=== PATIENT | male | born 1990 | race Caucasian/White ===

== ENCOUNTER 2020-09-13 12:20 | Emergency (ER) | payer OTHER, SELFPAY ==
--- NOTE | 2020-09-13 12:36 | DI.RAD.S_ITS ---
PROCEDURE: XR ELBOW RT MIN 3V INDICATIONS: fell on affected elbow last night, pain in prox FA and elbow TECHNIQUE: 3 views of the elbow were acquired. COMPARISON: [facility], , XR FOREARM RT 2V, 09/13/2020, 12:42. FINDINGS: Bones: No fractures or dislocations. No suspicious bony lesions. Soft tissues: No elbow joint effusion. No suspicious soft tissue calcifications. IMPRESSION: No displaced fractures are seen by plain film. Dictated by: Yogesh Augustin M.D. on 09/13/2020 at 12:01 Approved by: Yogesh Augustin M.D. on 09/13/2020 at 12:01
--- NOTE | 2020-09-13 12:36 | DI.RAD.S_ITS ---
PROCEDURE: XR FOREARM RT 2V INDICATIONS: fell on affected elbow last night, pain in prox FA and elbow TECHNIQUE: 2 views of the forearm were acquired. COMPARISON: [facility], , XR ELBOW RT MIN 3V, 09/13/2020, 12:42. FINDINGS: Bones: No fractures or dislocations. No suspicious bony lesions. Soft tissues: No suspicious soft tissue calcifications or masses. IMPRESSION: No displaced fractures can be seen. Dictated by: Yogesh Augustin M.D. on 09/13/2020 at 12:01 Approved by: Yogesh Augustin M.D. on 09/13/2020 at 12:02
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
[2020-09-13 12:41] VITALS: BP 148/80; PULSE 92; RESP 16; TEMP 36.8; O2SAT 95; BMI 25.7
[2020-09-13] MEDS: IBUPROFEN 400 MG TABLET 800 MG PO (12:43)
[2020-09-13] MEDS: TET,DIPH,PERTUSS(ACELL),VAC/PF 0.5 ML SYRINGE IM (12:44)
== END 2020-09-13 14:03 | disposition home or self-care (01) ==
PROVIDERS: Emergency Provider Nurse Practitioner Family
DX: S50.01XA Contusion of right elbow, initial encounter (principal); V18.0XXA Pedal cycle driver injured in noncollision transport accident in nontraffic accident, initial encounter; Z23 Encounter for immunization
CPT/HCPCS: 73080; 73090; 90471; 99283; 90715

== ENCOUNTER 2021-11-02 21:25 | Emergency (ER) | payer OTHER, MEDICAID, SELFPAY ==
[2021-11-02 21:36] VITALS: BP 140/87; PULSE 97; RESP 18; TEMP 36.8; O2SAT 100; BMI 26.6
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
--- NOTE | 2021-11-02 21:59 | DI.RAD.S_ITS ---
PROCEDURE: XR SACRUM COCCYX MIN 2V INDICATIONS: Fall, sacrum injury TECHNIQUE: 3 views of the sacrum and coccyx acquired. COMPARISON: None. FINDINGS: Bones: No acute displaced fracture identified. There is sclerosis along the endplates at S4 -S5 which may reflect sequelae of degeneration or prior trauma. No suspicious bony lesions. Soft tissues: Visualized bowel gas pattern is normal. No suspicious soft tissue densities. IMPRESSION: 1. No displaced fracture identified. If clinical concern persists, recommend further evaluation with CT. Dictated by: James Lepe M.D. on 11/02/2021 at 22:51 Approved by: James Lepe M.D. on 11/02/2021 at 22:51
[2021-11-02] MEDS: HYDROMORPHONE 1 MG INJ IM (22:03)
[2021-11-02] MEDS: IBUPROFEN 400 MG TABLET PO (23:12)
[2021-11-02 23:14] VITALS: BP 125/72; PULSE 78; RESP 18; O2SAT 100
== END 2021-11-02 23:14 | disposition home or self-care (01) ==
PROVIDERS: Emergency Provider Emergency Medicine; PCP Family Medicine
DX: S30.0XXA Contusion of lower back and pelvis, initial encounter (principal); V19.9XXA Pedal cyclist (driver) (passenger) injured in unspecified traffic accident, initial encounter
CPT/HCPCS: 72220; 96372; 99283; 99284; J1170

== ENCOUNTER 2023-10-16 00:13 | Emergency (ER) | payer OTHER, MEDICAID, SELFPAY ==
[2023-10-16 00:20] VITALS: BP 149/81; PULSE 124; RESP 18; TEMP 36.5; O2SAT 98; BMI 25.7
[2023-10-16 00:21] VITALS: PULSE 114; RESP 27; O2SAT 97
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
[2023-10-16] MEDS: NALOXONE 1 MG/ML SYRINGE 2 MG NASAL (00:27)
[2023-10-16 00:30] VITALS: PULSE 119; RESP 24; O2SAT 100
--- NOTE | 2023-10-16 00:55 | PC.NURSE ---
Pt disconnected self from monitor and got angry stating that he is out of here.
== END 2023-10-16 00:52 | disposition home or self-care (01) ==
PROVIDERS: Emergency Provider Emergency Medicine; PCP Family Medicine
DX: T40.411A Poisoning by fentanyl or fentanyl analogs, accidental (unintentional), initial encounter (principal)
CPT/HCPCS: 99282; J2310

== ENCOUNTER 2024-11-18 13:37 | Emergency (ER) | payer OTHER, MEDICAID, SELFPAY ==
[2024-11-18 13:49] VITALS: BP 127/73; PULSE 80; RESP 18; TEMP 36.4; O2SAT 100; BMI 27.4
--- NOTE | 2024-11-18 13:52 | DI.US.S_ITS ---
PROCEDURE: US SCROTUM INDICATIONS: testicular pain TECHNIQUE: Real-time scanning was performed of the scrotum and testicles, with image documentation. Color and pulse Doppler interrogation was performed of both testicles. COMPARISON: None. FINDINGS: Right: Testicle is normal in size at 4.3 x 3.0 x 2.4 cm, and homogenous in echotexture. Epididymis is normal in overall size and morphology. No hydrocele or varicoceles. Overlying scrotal skin is normal in thickness. Left: Testicle is normal in size at 4.3 x 3.1 x 2.2 cm, and homogeneous in echotexture. Epididymis is normal in overall size and morphology. No hydrocele or varicoceles. Overlying scrotal skin is normal in thickness. Doppler: Color and pulse Doppler demonstrate normal and symmetric arterial flow in both testicles. Increased vascularity in right epididymal tail is seen. Increased vascularity is also noted involving entire left epididymis. IMPRESSION: 1. Finding is concerning for left-sided epididymitis and mild right-sided epididymitis involving right epididymal tail. 2. No evidence of testicular torsion. No hydrocele or varicoceles. No solid appearing testicular lesion. Dictated by: Zaid Pryor M.D. on 11/18/2024 at 14:30 Approved by: Zaid Pryor M.D. on 11/18/2024 at 14:31
[2024-11-18 15:36] LABS: Bacteria Urine Occasional (0-1); RBC Urine 0-1/HPF (0-5/HPF); Sperm Urine PRESENT; Squamous Epithelial Cell Urine 0-1 /HPF (0-5/HPF); Urine Volume 10mL (spun); WBC Urine 0-1/HPF (0-5/HPF)
[2024-11-18 15:37] LABS: Culture Indicated Urine Cult Not Indicated; Mucus Urine 3+ (Negative)
[2024-11-18 16:51] LABS: Urine N gonorrhoeae NOT DETECTED
[2024-11-18 16:53] LABS: Urine Chlamydia NOT DETECTED
--- NOTE | 2024-11-18 17:49 | ED.MALEGU ---
HPI - Male Genitourinary <Wu Wilson PA-C - Last Filed: 11/18/24 17:54> General Chief complaint: Urogenital-Male Stated complaint: woke up this am with testicular pain Time Seen by Provider: 11/18/24 14:41 Source: patient Mode of arrival: Ambulatory History of Present Illness HPI Narrative: 33-year-old male presents to the ED with 1 day of bilateral scrotal pain, left greater than right. No fever, chills, nausea, vomiting. No dysuria. No new sexual partners. Related Data Home Medications Medication Instructions Recorded Confirmed methadone 10 mg/5 mL oral solution 30 mg PO DAILY 06/23/23 07/17/23 naloxone 4 mg/actuation nasal spray intranasal 06/23/23 07/17/23 Previous Rx's Medication Instructions Recorded atomoxetine 40 mg capsule 40 mg PO DAILY #60 caps 07/17/23 (Strattera) lamotrigine 25 mg tablet (Lamictal) 50 mg (2 x 25 mg) PO BID #120 tabs 07/17/23 doxycycline hyclate 100 mg capsule 100 mg PO BID 10 days #20 caps 11/18/24 Allergies Allergy/AdvReac Type Severity Reaction Status Date / Time No Known Drug Allergies Allergy Verified 11/18/24 13:49 Review of Systems <Wu Wilson PA-C - Last Filed: 11/18/24 17:54> Constitutional Constitutional: Denies chills, Denies fatigue, Denies fever(s), Denies frequent falls, Denies lethargy and Denies weakness Eyes Eyes: Denies change in vision, Denies eye discharge, Denies irritation and Denies loss of vision ENT Ears, Nose, Mouth, and Throat: Denies change in voice, Denies dizziness, Denies neck pain, Denies sore throat and Denies throat swelling Cardiovascular Cardiovascular: Denies chest pain, Denies irregular heart rhythm, Denies lightheadedness, Denies palpitations, Denies dyspnea, Denies dyspnea on exertion and Denies orthopnea Respiratory Respiratory: Denies cough, Denies dyspnea, Denies dyspnea on exertion and Denies wheezing Gastrointestinal Gastrointestinal: Denies abdominal pain, Denies change in bowel habits, Denies diarrhea, Denies nausea and Denies vomiting Genitourinary Comments: bilateral scrotal pain, L>R Musculoskeletal Musculoskeletal: Denies neck pain and Denies numbness Integumentary/Breasts Skin/Breast: Denies pruritus, Denies erythema, Denies rash and Denies wounds Neurologic Neurologic: Denies behavioral changes, Denies confusion, Denies dizziness, Denies frequent falls, Denies loss of vision, Denies numbness and Denies weakness Psychiatric Psychiatric: Denies anxiety, Denies behavioral changes, Denies confusion, Denies depression, Denies homicidal ideation and Denies suicidal ideation Endocrine Endocrine: Denies fatigue, Denies flushing and Denies palpitations Hematologic/Lymphatic Hematologic/Lymphatic: Denies easy bruising Allergic/Immunologic Allergic/Immunologic: Denies urticaria, Denies throat swelling and Denies wheezing Patient History <Wu Wilson PA-C - Last Filed: 11/18/24 17:54> Medical History ADHD Heroin use disorder, mild, in early remission Methamphetamine use disorder, mild, in early remission Bipolar 1 disorder Substance abuse (~2011) Depression History of bipolar disorder Anxiety Depression History of bipolar disorder Foot pain Chicken pox (~1995) Attention deficit disorder Tobacco abuse History of substance abuse No significant past medical history Surgical History No pertinent past surgical history Family History Grandmother Breast cancer Grandfather Cancer Social History Smoking Status: Current every day smoker Tobacco: How many years used: 15 Smokeless tobacco user: other (Juul ) quit status: considering quitting alcohol intake: current (2 beers per week ) substance use type: former substance user, heroin (Quit 09/02/20) and methamphetamine (Quit 09/02/20) Smoking Status: Current every day smoker tobacco type: vaping alcohol intake frequency: 0-2 drinks per day Exam <Wu Wilson PA-C - Last Filed: 11/18/24 17:54> Narrative Exam Narrative: Const General:?cooperative, healthy appearing and comfortable [facility] Head:?normal to inspection Ears:?hearing grossly normal bilaterally Nose:?external nose normal Face and sinus:?normal facial exam and sinuses nontender Mouth:?oral mucosae normal Throat:?posterior oropharynx normal Eyes General:?appearance normal, both eyes and all related structures Neck Neck:?normal visual inspection and no lymphadenopathy noted Resp Effort & Inspection:?normal respiratory effort Auscultation:?clear to auscultation bilaterally Cardio Rate:?regular rate Rhythm:?regular rhythm External exam normal Neuro General:?patient alert, patient awake and patient oriented x3 Initial Vital Signs Initial Vital Signs: Vital Signs Temperature 97.5 F L 11/18/24 13:49 Pulse Rate 80 11/18/24 13:49 Respiratory Rate 18 11/18/24 13:49 Blood Pressure 127/73 11/18/24 13:49 Pulse Oximetry 100 11/18/24 13:49 Oxygen Delivery Method Room Air 11/18/24 13:49 <Mary Wagner MD - Last Filed: 11/18/24 22:00> Initial Vital Signs Initial Vital Signs: Vital Signs Temperature 97.5 F L 11/18/24 13:49 Pulse Rate 80 11/18/24 13:49 Respiratory Rate 18 11/18/24 13:49 Blood Pressure 127/73 11/18/24 13:49 Pulse Oximetry 100 11/18/24 13:49 Oxygen Delivery Method Room Air 11/18/24 13:49 Course <Wu Wilson PA-C - Last Filed: 11/18/24 17:54> Orders Ordered: ED Orders 11/18/24 13:52 US scrotum Stat 11/18/24 15:00 Chlamydia Gonorrhea PCR -URINE Stat Urine Microscopic Stat Discontinued Medications Ceftriaxone Sodium (Ceftriaxone 1,000 Mg Vial) 500 mg IM NOW ONE Stop: 11/18/24 17:40 Last Admin: 11/18/24 18:05 Dose: 500 mg Documented By: GERRY Lidocaine HCl (Lidocaine 1% (Pf) 5 Ml) 2.1 ml INJ NOW ONE Stop: 11/18/24 17:40 Last Admin: 11/18/24 18:05 Dose: 2.1 ml Documented By: GERRY Vital Signs Vital signs: Vital Signs - 8 hr 11/18/24 13:49 Temperature 97.5 F L Pulse Rate 80 Respiratory Rate 18 Blood Pressure 127/73 Pulse Oximetry 100 Oxygen Delivery Method Room Air <Mary Wagner MD - Last Filed: 11/18/24 22:00> Orders Ordered: ED Orders 11/18/24 13:52 US scrotum Stat 11/18/24 15:00 Chlamydia Gonorrhea PCR -URINE Stat Urine Microscopic Stat Discontinued Medications Ceftriaxone Sodium (Ceftriaxone 1,000 Mg Vial) 500 mg IM NOW ONE Stop: 11/18/24 17:40 Last Admin: 11/18/24 18:05 Dose: 500 mg Documented By: GERRY Lidocaine HCl (Lidocaine 1% (Pf) 5 Ml) 2.1 ml INJ NOW ONE Stop: 11/18/24 17:40 Last Admin: 11/18/24 18:05 Dose: 2.1 ml Documented By: GERRY Vital Signs Vital signs: Vital Signs - 8 hr 11/18/24 13:49 Temperature 97.5 F L Pulse Rate 80 Respiratory Rate 18 Blood Pressure 127/73 Pulse Oximetry 100 Oxygen Delivery Method Room Air MDM - Male Genitourinary <Wu Wilson PA-C - Last Filed: 11/18/24 17:54> Lab Data Labs: Lab Results 11/18/24 Range/Units 15:00 Urine RBC 0-1/hpf (0-5/HPF) Urine WBC 0-1/hpf (0-5/HPF) Ur Squamous Epith Cells 0-1 /hpf (0-5/HPF) Urine Bacteria Occasional (0-1) (None) Urine Mucus 3+ H (Negative) Urine Sperm Present Ur Culture Indicated? Cult not indicated Vol Urine Centrifuged 10ml (spun) Ur Chlamydia DNA (PCR) Not detected N gonorrhoeae DNA (PCR) Not detected Urine Dip Bedside Urine Glucose Negative Bedside Urine Bilirubin - Negative Bedside Urine Ketone - Negative Urine Specific [place]offett 1.025 Bedside Urine Occult Blood - Negative Bedside Urine pH 6 Bedside Urine Protein + 30 Bedside Urine Urobilinogen - Negative Bedside Urine Nitrite - Negative Bedside Urine Leukocytes - Negative Esterase [facility] Narrative Medical decision making narrative: 33-year-old male presents to the ED with 1 day of bilateral scrotal pain, left greater than right. Scrotal ultrasound shows left-sided epididymitis and mild right-sided epididymitis involving the right epididymal tail. No evidence of testicular torsion. No hydrocele or varicoceles. No solid appearing testicular lesion. UA is negative for UTI. Urine GC is negative. Discussed findings with patient. Patient given a dose of IM ceftriaxone in the ED today. Prescribed doxycycline PO. Recommend follow-up with PCP. ED return precautions discussed with patient. Patient verbalized understanding. Medical records reviewed: Yes <Mary Wagner MD - Last Filed: 11/18/24 22:00> Lab Data Labs: Lab Results 11/18/24 Range/Units 15:00 Urine RBC 0-1/hpf (0-5/HPF) Urine WBC 0-1/hpf (0-5/HPF) Ur Squamous Epith Cells 0-1 /hpf (0-5/HPF) Urine Bacteria Occasional (0-1) (None) Urine Mucus 3+ H (Negative) Urine Sperm Present Ur Culture Indicated? Cult not indicated Vol Urine Centrifuged 10ml (spun) Ur Chlamydia DNA (PCR) Not detected N gonorrhoeae DNA (PCR) Not detected Urine Dip Bedside Urine Glucose Negative Bedside Urine Bilirubin - Negative Bedside Urine Ketone - Negative Urine Specific [place]off[place] 1.025 Bedside Urine Occult Blood - Negative Bedside Urine pH 6 Bedside Urine Protein + 30 Bedside Urine Urobilinogen - Negative Bedside Urine Nitrite - Negative Bedside Urine Leukocytes - Negative Esterase Discharge Plan Departure Patient Disposition: Home Clinical Impression: Epididymitis Instructions: DI for Epididymitis Activity Restrictions/Additional Instructions: You were evaluated in the ED today for scrotal pain. The ultrasound shows epididymitis, which is a scrotal infection. You were given a dose of ceftriaxone which is an antibiotic an injection form in the ED. You were also being prescribed antibiotic pills to take for the next 10 days. Please follow-up with your PCP as soon as possible. Return to the ED if you have worsening symptoms. Prescriptions: New doxycycline hyclate 100 mg capsule 100 mg PO BID 10 Days Qty: 20 0RF No Action methadone 10 mg/5 mL solution 30 mg PO DAILY naloxone 4 mg/actuation spray,non-aerosol intranasal lamotrigine [Lamictal] 25 mg tablet 50 mg PO BID Qty: 120 11RF atomoxetine [Strattera] 40 mg capsule 40 mg PO DAILY Qty: 60 11RF Rx Instructions: 40 mg daily x 3 days, then 80 mg daily. Referrals: Belkys Castañeda DO [Primary Care Provider] - Stand Alone Forms: Patient Portal/API/Survey ED Sign-out <Mary Wagner MD - Last Filed: 11/18/24 22:00> Cosign ED Attending Germaniaature Attestation: I was immediately available in the department for consultation. This documentation has been reviewed and I agree with assessment and plan. Supervised by Mary Wagner MD
[2024-11-18] MEDS: LIDOCAINE 1% (PF) 5 ML 2.1 ML INJ (18:05)
[2024-11-18] MEDS: cefTRIAXone 1,000 MG VIAL 500 MG IM (18:05)
== END 2024-11-18 18:25 | disposition home or self-care (01) ==
PROVIDERS: Emergency Provider Student in an Organized Health Care Education/Training Program; PCP Family Medicine
DX: N45.1 Epididymitis (principal)
CPT/HCPCS: 76870; 81003; 81015; 87491; 87591; 93975; 96372; 99283; J0696